=== PATIENT | male | born 1945 | race Caucasian/White ===

== ENCOUNTER 2019-08-10 10:13 | Emergency (ER) | payer OTHER, MEDICARE ==
--- NOTE | 2019-08-10 10:35 | EDM.PDOC ---
ED HPI GENERAL MEDICAL PROBLEM - General Stated Complaint: CODE BLUE Time Seen by Provider: 08/10/19 10:13 - History of Present Illness INITIAL COMMENTS - FREE TEXT/NARRATIVE: Pt was found at home in cardiac arrest cpr started at 0940, prior to arrival pt with 4 rounds of epi given IV, 7.[address] 24 cm at the lip, reese in place. Pulse with cpr, no pulse w/o cpr. eyes fixed and dilated. Onset: Today ED ROS GENERAL - Review of Systems Review Of Systems: See Below Free Text/Narrative/Comment: Pt not breathing and cpr in progress. ED EXAM, CPR - Physical Exam Exam: See Below Text/Narrative:: Pt presents not breathing and cpr in progress. CPR started at 0940, prior to arrival pt with 4 rounds of epi given IO, 7.[address] 24 cm at the lip , reese in place. Pulse with cpr, no pulse w/o cpr. eyes fixed and dilated. Pt with wet lung sounds. Skin pink, warm, dry, No heart tones, EtCo2 29. Pt given 1 epi in er, w/o any change, egl in 200's. Pt with PEA on monitor. Cpr for 10 minutes in er, no changes. 1025 discussed findings with family, at this time was decided to stop code. Course - Orders/Labs/Meds Orders: Active Orders 24 hr Category Date Time Status D-DIMER QUANTITATIVE [COAG] Routine Lab 08/10/19 10:17 Received INR,PT,PROTHROMBIN TIME [COAG] Routine Lab 08/10/19 10:17 Received PTT,PARTIAL THROMBOPLSTIN TIME [COAG] Routine Lab 08/10/19 10:17 Received Labs: Laboratory Tests 08/10/19 08/10/19 08/10/19 Range/Units 10:17 10:17 10:20 WBC 11.5 H (4.0-10.0) x10^3/uL RBC 4.94 (4.5-6.0) x10^6/uL Hgb 14.0 (14.0-18.0) g/dL Hct 47.0 (40.0-52.0) % MCV 95.1 H (78.0-93.0) fL MCH 28.3 (26.0-32.0) pg MCHC 29.8 L (32.0-36.0) g/dL RDW Coeff of Avril 17.4 H (10.0-15.0) % Plt Count 164 (130-400) x10^3/uL Add Manual Diff Yes Neutrophils % (Manual) 52 (50-80) % Band Neutrophils % 6 (0-6) % Lymphocytes % (Manual) 17 L (25-50) % Monocytes % (Manual) 9 (2-11) % Eosinophils % (Manual) 1 (0-4) % Metamyelocytes % 7 H (0) % Myelocytes % 8 H (0) % Platelet Estimate Adequate Anisocytosis 1+ slight H Sodium 141 (136-145) mmol/L Potassium 4.9 (3.5-5.1) mmol/L Chloride 101 (98-107) mmol/L Carbon Dioxide 24 (21-32) mmol/L Anion Gap 20.9 H (10-20) mmol/L BUN 35 H (7-18) mg/dL Creatinine 2.0 H (0.70-1.30) mg/dL Est Cr Clr Drug Dosing TNP Estimated GFR (MDRD) 33 Glucose 328 H (74-106) mg/dL Calcium 9.0 (8.5-10.1) mg/dL POC Troponin I 0.07 (0.00-0.08) ng/mL Departure - Departure Time of Disposition: 10:59 Disposition: 20 Condition: Critical Clinical Impression: Cardiac arrest - Discharge Information - My Orders Last 24 Hours: My Active Orders 08/10/19 10:17 D-DIMER QUANTITATIVE [COAG] Routine INR,PT,PROTHROMBIN TIME [COAG] Routine PTT,PARTIAL THROMBOPLSTIN TIME [COAG] Routine - Assessment/Plan Last 24 Hours: My Active Orders 08/10/19 10:17 D-DIMER QUANTITATIVE [COAG] Routine INR,PT,PROTHROMBIN TIME [COAG] Routine PTT,PARTIAL THROMBOPLSTIN TIME [COAG] Routine
[2019-08-10 10:41] LABS: ANION GAP 20.9 mmol/L (10-20); CHLORIDE,CL 101 mmol/L (98-107); SODIUM,NA 141 mmol/L (136-145)
== END 2019-08-10 10:25 | disposition expired ==
LOC: VM.ED 10:13
DX: I46.9 Cardiac arrest, cause unspecified (principal)
CPT/HCPCS: 36415; 80048; 82962; 84484; 85025; 85379; 85610; 85730; 92950; 99285-25